=== PATIENT | male | born 1985 | race Caucasian/White ===

== ENCOUNTER 2016-07-15 10:07 | Emergency (ER) | payer BC, OTHER ==
[2016-07-15 13:11] VITALS: BP 129/93
--- NOTE | 2016-07-26 15:05 | UC ---
mike Toth Timothy, scribed for Sandi Pacheco MD on 07/15/16 at 1237 . Throat Pain/Nasal Praveen HPI - HPI Summary HPI Summary: Cayetano White is a 30 yo male presenting to [facility] stating his right nostril is plugged with 1/10 pressure, and he has productive cough with yellow/green sputum since 07/12/16. He states he had some blood in his throat as well, which he coughed up 2x. Pt has been taking OTC meds with minor relief. He denies any fever, CP, SOB. He denies any PMHx. - History of Current Complaint Chief Complaint: UCGeneralIllness Stated Complaint: SINUS COMPLAINT Time Seen by Provider: 07/15/16 12:39 Hx Obtained From: Patient Onset/Duration: Sudden Onset, Lasting Days, Still Present Severity: Moderate Pain Intensity: 1 Pain Scale Used: 0-10 Numeric Cough: Sputum Appears - yellow/green Associated Signs & Symptoms: Positive: Nasal Discharge. Negative: Wheezing - Epiglottits Risk Factors Epiglottis Risk Factors: Negative - Allergies/Home Medications Allergies/Adverse Reactions: Allergies Allergy/AdvReac Type Severity Reaction Status Date / Time No Known Allergies Allergy Verified 07/15/16 10:33 Home Medications: Home Medications Phenylephrine HCl (Oral) [Nasal Decongestant] 1 tab PO Q4HR PRN 07/15/16 [ History Confirmed 07/15/16] PMH/Surg Hx/FS Hx/Imm Hx Previously Healthy: Yes - Surgical History Surgical History: Yes Surgery Procedure, Year, and Place: Hernia repair - 2010 - Family History Known Family History: Negative: Other - lung CA - Social History Alcohol Use: Occasionally Alcohol Amount: 2 beers a week Substance Use Type: None Smoking Status (MU): Never Smoked Tobacco - Immunization History Most Recent Tetanus Shot: unknown date but within in last 10 years. pt thinks 2008 Review of Systems Constitutional: Negative Skin: Negative Eyes: Negative ENT: Sore Throat, Nasal Discharge Respiratory: Cough - yellow/green sputum with blood Cardiovascular: Negative Gastrointestinal: Negative Genitourinary: Negative Motor: Negative Neurovascular: Negative Musculoskeletal: Negative Neurological: Negative Psychological: Negative All Other Systems Reviewed And Are Negative: Yes Physical Exam Triage Information Reviewed: Yes Appearance: No Pain Distress, Well-Nourished, Ill-Appearing Vital Signs: Initial Vital Signs Temp 98.6 F 07/15/16 10:30 Pulse 88 07/15/16 10:30 Resp 16 07/15/16 10:30 BP 139/86 07/15/16 10:30 Pulse Ox 100 07/15/16 10:30 Vital Signs Reviewed: Yes Eyes: Positive: Conjunctiva Clear. Negative: Discharge ENT: Positive: Hearing grossly normal, Pharyngeal erythema, Other: - left nostril erythematous, dry, and inflamed. Sinus tenderness. Negative: Muffled/ hoarse voice Neck: Positive: Supple, Nontender Respiratory: Positive: Lungs clear, Normal breath sounds, No respiratory distress Cardiovascular: Positive: RRR, No Murmur, Pulses Normal, Brisk Capillary Refill Musculoskeletal: Positive: Strength Intact, ROM Intact Neurological: Positive: Alert, Muscle Tone Normal Psychological Exam: Normal Psychological: Positive: Age Appropriate Behavior Skin Exam: Normal Skin: Negative: rashes Throat Pain/Nasal Course/Dx - Course Assessment/Plan: Cayetano White is a 30 yo male presenting to [facility] with a plugged left nostril with productive cough with yellow/green sputum and blood 2x. After clinical examination, he will be discharged home with sinusitis and bronchitis with appropriate instructions. - Differential Dx/Diagnosis Differential Diagnosis/HQI/PQRI: Otitis Media, Pharyngitis, Sinusitis, URI, Other - bronchitis Provider Diagnoses: sinusitis, bronchitis, elevated BP without dx of HTN Discharge - Discharge Plan Condition: Stable Disposition: HOME Prescriptions: Amoxicillin/Clavulanate TAB* [Augmentin TAB 875*] 875 mg PO BID #20 tab Patient Education Materials: Sinusitis (ED), Acute Bronchitis (ED) Forms: *Work Release Referrals: [facility] [Outside] - 2 Days Additional Instructions: Please follow up with the primary care physician provided regarding your visit to urgent care today. Your blood pressure was slightly elevated today at 139/86 , and you should have it rechecked within 1 month. Return to urgent care or the emergency department with any new or recurring symptoms. The documentation as recorded by the mike hernandez Timothy accurately reflects the service I personally performed and the decisions made by me, Sandi Pacheco MD.
== END 2016-07-15 13:00 | disposition home or self-care (01) ==
LOC: UCEAST 10:07
DX: J32.9 Chronic sinusitis, unspecified (principal); J40 Bronchitis, not specified as acute or chronic; R03.0 Elevated blood-pressure reading, without diagnosis of hypertension
CPT/HCPCS: 99212; G0463